=== PATIENT | female | born 1970 | race Caucasian/White ===

== ENCOUNTER → 2017-03-21 | Outpatient (CLI) | payer OTHER | LOC: BMCIMAGING 13:41 | PROVIDERS: ATTEND Obstetrics & Gynecology | DX: Z12.31 Encounter for screening mammogram for malignant neoplasm of breast (principal) | CPT/HCPCS: G0202 ==

== ENCOUNTER → 2018-01-21 | Outpatient (CLI) | payer OTHER | LOC: FIMAGING 08:44 | PROVIDERS: ATTEND Radiology Diagnostic Radiology | DX: I83.811 Varicose veins of right lower extremity with pain (principal) ==

== ENCOUNTER → 2018-03-17 | Day surgery (SDC) | payer OTHER ==
[~2018-03-17] MED LIST: SODIUM TETRADECYL SULFATE 3% 2 ML VIAL IV ONE
== END | disposition home or self-care (01) ==
LOC: FIMAGING 14:17
PROVIDERS: ATTEND Radiology Diagnostic Radiology
PROC: 3E033TZ Introduction of Destructive Agent into Peripheral Vein, Percutaneous Approach (ICD-10-PCS; principal; 2018-03-17)
DX: I83.811 Varicose veins of right lower extremity with pain (principal)

== ENCOUNTER → 2018-03-23 | Outpatient (CLI) | payer OTHER | LOC: BMCIMAGING 08:29 | PROVIDERS: ATTEND Obstetrics & Gynecology | DX: Z12.31 Encounter for screening mammogram for malignant neoplasm of breast (principal) ==

== ENCOUNTER → 2018-04-15 | Outpatient (CLI) | payer OTHER | LOC: FIMAGING 16:46 | PROVIDERS: ATTEND Radiology Diagnostic Radiology | DX: I83.91 Asymptomatic varicose veins of right lower extremity (principal); I80.9 Phlebitis and thrombophlebitis of unspecified site ==